=== PATIENT | female | born 2000 | race Caucasian/White ===

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

== ENCOUNTER → 2020-03-01 | Outpatient (CLI) | payer OTHER ==
[~2020-03-01] MED LIST: PROZ20CA11 PO
[2020-03-01 16:47] LABS: C REACTIVE PROTEIN QUANTITATIV < 0.30 MG/DL (0.00-0.30); RHEUMATOID FACTOR QUANT < 10.0 IU/ML (<15.0)
[2020-03-06 14:21] LABS: ANTINUCLEAR ANTIBODIES DIRECT Negative (Negative); HLA-B27 Positive (.); Lyme Disease IgG/IgM Antibodie <0.91 ISR (0.00-0.90); Lyme Disease IgM Ab Quantitati <0.80 index (0.00-0.79)
== END ==
LOC: M LAB 15:35
PROVIDERS: ATTEND Physician Assistant
DX: M50.30 Other cervical disc degeneration, unspecified cervical region (principal)

== ENCOUNTER 2020-12-04 16:05 | Emergency (ER) | payer OTHER ==
[2020-12-04] MEDS ORDERED: NS 1,000 ML IV ONE (16:30)
[2020-12-04 16:54] VITALS: BP 111/73
--- OUTSIDE RECORDS SUMMARY | 2020-12-04 17:57 | CCD | Summary of Care ---
Author Author [facility] Organization [facility] Address Unknown Phone Unavailable Care Team Providers Care Paint Dipper Name Role Phone Elisabeth Boss BUSINESS MANAGEMENT CONSULTANT PCP Encounter Details Care Team Description Date Type Department HLA B27 (HLA B27 positive); Inflammatory arthritis 09/26/2020 Hospital Diagnostic Radiolog y at Encounter [facility] [address] [facility] [address] [place] [address] Allergies Not on Filedocumented as of this encounter (statuses as of 09/27/2020) Medications End Date Status Medication Sig Dispensed Refills Start Date Active Escitalopram Oxalate 10 Take 10 mg by 0 MG Oral Tablet (LEXAPRO) mouth daily Active Drospirenone-Ethinyl Take 1 tablet 0 Estradiol 3-0.02 MG Oral by mouth Tablet (GIANVI) daily documented as of this encounter (statuses as of 09/27/2020) Active Problems Problem Noted Date Anxiety 09/26/2020 Depression 09/26/2020 documented as of this encounter (statuses as of 09/27/2020) Social History Date Tobacco Use Types Packs/Day Years Used Never Smoker Smokeless Tobacco: Never Used Comments: smoked for 1 year 2 cigs a day Drinks/Week oz/Week Comments Alcohol Use Not Currently Sex Assigned at Date Recorded Not on file Date Recorded COVID-19 Exposure Response 09/26/2020 12:29 PM EST In the last month, have you been in contact with No / Unsure someone who was confirmed or suspected to have Coronavirus / COVID-19? documented as of this encounter Last Filed Vital Signs Not on filedocumented in this encounter Plan of Treatment Health Maintenance Due Date Last Done Comments MMR Vaccines (1 of - 2001 Standard series) Varicella Vaccines (2001 2 - 2-dose childhood series) HPV Vaccines (1 - 2-dose 2011 series) HIV Screening 2013 Chlamydia Screening 2016 DTaP,Tdap,and Td Vaccines 06/07/2019 05/10/2019 (2 - Td) Influenza Vaccine 07/19/2020 07/06/2019 Pneumococcal Vaccine: 65+ 2065 Years (1 of 1 - PPSV23) HIB Vaccines Aged Out No longer eligible based on patient's age to complete this topic Hepatitis A Vaccines Aged Out No longer eligibl e based on patient's age to complete this topic Hepatitis B Vaccines Aged Out No longer eligibl e based on patient's age to complete this topic IPV Vaccines Aged Out No longer eligible based on patient's age to complete this topic Pneumococcal Vaccine: Aged Out No longer eligib le based on patient's age to Pediatrics (0 to 5 Years) complete this topic and At-Risk Patients (6 to 64 Years) documented as of this encounter Procedures Comments Procedure Name Priority Date/Time Associated Diag nosis XR SACROILIAC JOINTS Routine 09/26/2020 HLA B27 ( HLA B27 47513 2:38 PM EST positive) Inflammatory arthritis documented in this encounter Results * XR Sacroiliac Joints (09/26/2020 2:38 PM EST) Specimen Impressions Performed At IMPRESSION: [facility] No acute bony injury is identified. The re is no evidence of an erosive arthropathy of either sacroiliac joint. Likely small subchondral degenerative cyst involving the right sacroiliac aleshia nt as discussed above. Narrative Performed At INDICATION: Positive HLA-B27, concern for . [facility] TECHNIQUE: 3 radiographic views of the SI joints bilaterally were obtained. COMPARISON: None. FINDINGS: There is no evidence for an acute fract ure or dislocation . The joint spaces are well maintained and there is anatom ic alignment . No cortical erosion or subchondral sclerosis is seen within ei ther sacroiliac joint. There is a small focal lucency with regard to the subcho ndral iliac bone of the right sacroiliac joint. The this has the appearance of a small subchondral cyst as opposed to an erosion. The soft tissue structures are unremarkable. Procedure Note Interface, Received Via Radiant System - 09/26/2020 3:48 PM EST INDICATION: Positive HLA-B27, concern for . TECHNIQUE: 3 radiographic views of the SI joints bilaterally were obtained. COMPARISON: None. FINDINGS: There is no evidence for an acute fracture or dislocation . The joint spaces are well maintained and there is anatomic alignment . No cortical erosion or subchondral sclerosis is seen within either sacroiliac joint. There is a small focal lucency with regard to the subchondral iliac bone of the right sacroiliac joint. The this has the appearance of a small subchondral cyst as opposed to an erosion. The soft tissue structures are unremarkable. IMPRESSION: No acute bony injury is identified. There is no evidence of an erosive arthropathy of either sacroiliac joint. Likely small subchondral degenerative cyst involving the right sacroiliac joint as discussed above. Performing Organization Address City/State/Zipcode Ph one Number [facility] [address] [place] [address] documented in this encounter Visit Diagnoses Diagnosis HLA B27 (HLA B27 positive) Genetic susceptibility to other disease Inflammatory arthritis Unspecified inflammatory polyarthropath y documented in this encounter
--- OUTSIDE RECORDS SUMMARY | 2020-12-04 17:57 | CCD ---
Author Organization Unknown Address [address] [place] [address] Phone [phone] Care Team Providers Care Dietary Aide Name Role Phone [facility] Covid Nurse Unavailable Unavailable Allergies None recorded. Medications Name Status Start Date Stop Date duloxetine 30 mg capsule,delayed release Active Not available escitalopram 10 mg tablet Active Not av ailable escitalopram 20 mg tablet Active Not av ailable fluoxetine 20 mg capsule Active Not eric ilable misoprostol 200 mcg tablet Active Not a vailable naproxen 500 mg tablet Active Not avail able sertraline 50 mg tablet Active Not avai lable BEA (28) 3 mg-0.02 mg tablet Active Not available Problems Name Status Onset Date Source Exposure to Communicable Disease Active 07/10/2020 History Procedures None recorded. Results Lab Results Date Name Specimen Result Interpretation Description Value Range Status Address 11/20/2020 SARS CoV 2 RdRp Gene, QL Probe, Respiratory Spec imen Nasopharyngeal Normal Sars-cov-2 negative negative Final [facility] Medical: [address] [facility] [address] 11/12/2020 SARS CoV 2 RdRp Gene, QL Probe, Respiratory Spec imen Nasopharyngeal Normal Sars-cov-2 negative negative Final [facility] Medical: [address] [facility] 08/08/2020 COVID-19 RNA (SARS-CoV-2), QL, manager report-PCR, Respiratory Specimen Nasopharyngeal Sars Cov 2 RNA not detected not detected Fi nal Associated Clinical Labs ([facility]): [address] [place] Past Encounters 11/20/2020 Exposure to SARS-CoV-2 Chrissie Goldstien PA-C: [address] [facility], [facility] [address], [place] [address], Ph. 11/12/2020 Exposure to SARS-CoV-2 Beto Stearns MD: [address] [place] [address], Ph. 08/08/2020 Exposure to SARS-CoV-2 Arthur Pugh, RPA-C: [address] [facility], [facility] [address], [place] [address], Ph. Social History None recorded. Vaccine List None recorded. Plan of Care Reminders Provider Appointments None recorded. Lab None recorded. Referral None recorded. Procedures None recorded. Surgeries None recorded. Imaging None recorded. Vitals None recorded.
--- OUTSIDE RECORDS SUMMARY | 2020-12-04 17:57 | CCD | Summary of Care ---
Author Author [facility] Organization [facility] Address Unknown Phone Unavailable Care Team Providers Care Teacher Industrial Arts Name Role Phone Elisabeth Boss SWING TYPE LATHE OPERATOR PCP Reason for Referral * Consultation (Routine) Referred By Contact Referred To Contact Status Reason Specialty Diagnoses / Procedures Chelsy Musa MD [address] [place] [phone] Email: [email or web address] Authorized Specialty Services Ophthalmology Diagnoses Required HLA B27 (HLA B27 positive) Inflammatory arthritis * Consultation (Routine) Referred By Contact Referred To Contact Status Reason Specialty Diagnoses / Procedures Chelsy Musa MD [address] [place] [phone] Email: [email or web address] Authorized Specialty Services Gastroenterology Diagnoses Required HLA B27 (HLA B27 positive) Inflammatory arthritis Reason for Visit * Reason Comments New Patient * Diagnostic Medical (Routine) Referred By Contact Referred To Contact Status Reason Specialty Diagnoses / [place] [address] [place] [address] Rheumatology Provider-Based [facility] [address], [address] [place] [phone] Authorized Rheumatology Diagnoses Ankylosing spondylitis Encounter Details Care Team Description Date Type Department Chelsy Musa MD [address] [place] [phone] HLA B27 (HLA B27 positive) (Primary Dx); Inflammatory arthritis; Neck pain 09/26/2020 Office Visit [facility] Rheumatolog y at [address], [address] [place] [address] Allergies Not on Filedocumented as of this encounter (statuses as of 09/26/2020) Medications End Date Status Medication Sig Dispensed Refills Start Date Active Escitalopram Oxalate 10 Take 10 mg by 0 MG Oral Tablet (LEXAPRO) mouth daily Active Drospirenone-Ethinyl Take 1 tablet 0 Estradiol 3-0.02 MG Oral by mouth Tablet (GIANVI) daily 09/26/2020 Discontinued DULoxetine HCl 30 MG Oral 0 Capsule Delayed Release 0 Particles (CYMBALTA) 09/26/2020 Discontinued BEA 3-0.02 MG Oral Tablet 0 0 documented as of this encounter (statuses as of 09/26/2020) Active Problems Problem Noted Date Anxiety 09/26/2020 Depression 09/26/2020 documented as of this encounter (statuses as of 09/26/2020) Social History Date Tobacco Use Types Packs/Day [...] of this encounter Last Filed Vital Signs Reading Time Taken Comments Vital Sign 124/84 09/26/2020 1:06 PM EST Blood Pressure 126 09/26/2020 1:06 PM EST normal per patie nt Pulse - - Temperature 16 09/26/2020 1:06 PM EST Respiratory Rate 99% 09/26/2020 1:06 PM EST Oxygen Saturation - - Inhaled Oxygen Concentration 52.2 kg (115 lb) 09/26/2020 1:06 PM EST Weight 154.9 cm (5' 1") 09/26/2020 1:06 PM EST Height 21.73 09/26/2020 1:06 PM EST Body Mass Index documented in this encounter Progress Notes * Chelsy Musa MD - 09/26/2020 1:00 PM ESTSummary: New patient for back pain and +HLAb27 Rheumatology Clinic Note Patient name: Shira Velazquez : 2000 PCP: Elisabeth Boss NP Subjective History of Present Illness: Ms. Shira Velazquez is a 20-year-old female with PMHx significant for anxiety/ depression on lexapro eferral for possible evaluation with chronic neck pain and +HLA-B27. Neck injury in 10/19/2011 from sliding accident, she saw a chiropractor. Patient s ays she has had chronic neck pain since age 12, she used to play volleyball and looking up would aggravate it. Her pain continued to worsen and at 16yo she stop ped playing volleyball. She started having lower back pain above the butt at 14 yo. She has issues falling asleep because of pain and trying to adjust. She does not have morning stiffness that she notices. Her back pain starts mid-day and t hen continues. Activity does not help. IBU helps with her pain, ice and stretchi ng helps and Biofreeze helps. She follows up with opthalmology and has never bee n she has inflammatory eye disease. She also has occasional knee pain. She has bowel issues described episodes between diarrhea and constipation with bloating without bloody stools or weight loss. She has no fever, chills, sob, chest pain. Mother with fibromyalgia and dad with crohn's disease. FH remarkable for RA in paternal side, her maternal GM with RA also, her father with CD and brother with dori. She also describes episodes of rib pain described as inflammed and tightness, this occurs once a week and lasts 1 week. 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 She has no enthesisits, skin p soriasis and Remaining ROS was negative for malar rash, other rashes, photosensitivity, rayn auds, alopecia, oral/nasal sores, history of miscarriage, history of PE/DVT or C VA, inflammatory bowel disease, neurologic manifestations, iritis, xerostomia, k eratoconjunctivitis sicca, parotid gland swelling, renal disease, pulmonary issu es, pleurisy, cardiac issues, nail pitting/oil stained nails or dactylitis. Previous EMG studies 03/2020 reported negative for radiculoapathy or peripheral n europathy, she had MRI of cervical neck that reported DJD at c2-3, c4-5, c5-6 wi thout stenosis. She has PT, osteopathic and chiropractor without relief. RF, CR P wnl, +HLA-B27 Past Medical History: Past Medical History: Diagnosis Date Anxiety Depression Allergies: NKDA Past Surgical History: Past Surgical History: Procedure Laterality Date WISDOM TOOTH EXTRACTION Bilateral Past Social History: Social History Socioeconomic History Marital status: Spouse name: Not on file Number of children: Not on file Years of education: Not on file Highest education level: Not on file Occupational History Not on file Social Needs Financial resource strain: Not on file Food insecurity Worry: Not on file Inability: Not on file Transportation needs Medical: Not on file Non-medical: Not on file Tobacco Use Smoking status: Current Every Day Smoker Substance and Sexual Activity Alcohol use: Not on file Drug use: Not on file Sexual activity: Not on file Lifestyle Physical activity Days per week: Not on file Minutes per session: Not on file Stress: Not on file Relationships Social connections Talks on phone: Not on file Gets together: Not on file Attends anglican service: Not on file Active member of club or organization: Not on file Attends meetings of clubs or organizations: Not on file Relationship status: Not on file Intimate partner violence Fear of current or ex partner: Not on file Emotionally abused: Not on file Physically abused: Not on file Forced sexual activity: Not on file Other Topics Concern Not on file Social History Narrative Not on file Family History: Family History Problem Relation Age of Onset Arthritis Mother Medications: Current Outpatient Medications Medication Sig Dispense Refill Drospirenone-Ethinyl Estradiol 3-0.02 MG Oral Tablet (GIANVI) Take 1 tabl et by mouth daily Escitalopram Oxalate 10 MG Oral Tablet (LEXAPRO) Take 10 mg by mouth christiano y No current facility-administered medications for this visit. Review of Systems: Constitutional: chills, malaise/fatigue, fever, unexpected weight loss HENT: sore throat, dry mouth, swollen glands Eyes: blurred vision, double vision, pain and discharge, dry eyes Respiratory: cough, hemoptysis, sputum production and shortness of breath. Cardiovascular: lower extremity swelling, chest pain and palpitations. Gastrointestinal: heartburn, dysphagia, nausea, vomiting, abdominal pain, consti pation, diarrhea. Genitourinary: dysuria, hematuria and flank pain. Musculoskeletal: joint pain, joint stiffness, joint swelling, erythema, increas ed warmth, neck pain, myalgias and falls. Skin: rash, photosensitivity, thickening/tightening Neurological: dizziness, sensory change, speech change, focal weakness, loss of consciousness, tingling/numbness and weakness. Endo/Heme/Allergies: easy bruising/bleeding All pertinent positives and negatives as per HPI. Remainder of complete ROS nega tive. Objective Vitals: 09/26/20 1306 BP: 124/84 Pulse: (!) 126 Resp: 16 SpO2: 99% Physical Exam Constitutional: She is oriented to person, place, and time. No distress. HENT: Head: Normocephalic and atraumatic. Right Ear: External ear normal. Left Ear: External ear normal. Mouth/Throat: No oropharyngeal exudate. Eyes: Conjunctivae are normal. Right eye exhibits no discharge. Left eye exhibit s no discharge. No scleral icterus. Neck: Neck supple. No JVD present. No thyromegaly present. Cardiovascular: Normal rate, regular rhythm and normal heart sounds. No murmur heard. Pulmonary/Chest: Effort normal and breath sounds normal. No respiratory distress . She has no wheezes. She has no rales. Abdominal: Soft. Bowel sounds are normal. She exhibits no distension. There is n o abdominal tenderness. Musculoskeletal: General: No tenderness or edema. Right shoulder: Normal. Left shoulder: Normal. Right wrist: Normal. Right hip: Normal. She exhibits normal range of motion. Left hip: Normal. She exhibits normal range of motion. Right knee: Normal. Left knee: Normal. Right ankle: Normal. Left ankle: Normal. Comments: CANDELARIA test done and had pain on left side occiput to wall test, distance measured to be zero Lymphadenopathy: She has no cervical adenopathy. Neurological: She is alert and oriented to person, place, and time. Skin: Skin is warm. No rash noted. She is not diaphoretic. No erythema. Psychiatric: Affect and judgment normal. Nursing note and vitals reviewed. Assessment & Plan Ms. Shira Velazquez is a 20-year-old female with PMHx significant for anxiety/ depression on lexapro eferral for possible evaluation with chronic neck pain and +HLA-B27. Today patient c/o chronic neck pain that started when sh was 12, then her pain p rogressed to her lower back at the age of 14. Her FH is remarkable for RA for s everal members in fathers side, CD in her father and RA in MGM. She also has +H LB-27 marker but she has no skin psoriasis, enthesitis, iritis, or nail changes. Also her pain is not typical for in that she does not have am stiffness, but rather has pain mid day, and pain is worst with too much activity. IBU does he lp. Given her bowel complaints and FH of CD in father I will refer her to GI. She has not seen opthalmology in 2 years and I advised her to see one, both refe rrals made to [place] at her request. Given her complaints I wonder if she has FREDDY. Shira was seen today for new patient. Diagnoses and all orders for this visit: HLA B27 (HLA B27 positive), back pain - HLA-B27 antigen; Future - Sedimentation rate, automated; Future - Rheumatoid factor; Future - EVELYN; Future - EVELYN Specificity; Future - C3 complement; Future - C4 complement; Future - XR Hand 3 or More Views Bilateral; Future - CCP antiBody; Future - Inflammatory C-Reactive Protein (CRP); Future - XR Spine Cervical 3 Views or Less; Future - XR Hips - Bilateral, 2 Views; Future - XR Sacroiliac Joints; Future - Referral to Gastroenterology - Referral to Ophthalmology - Inflammatory C-Reactive Protein (CRP) - CCP antiBody - C4 complement - C3 complement - EVELYN Specificity - EVELYN - Rheumatoid factor - Sedimentation rate, automated - HLA-B27 antigen Activities as tolerated. Fall precautions emphasized. Diet: low carb/low fat, more greens/vegetables, adequate hydration Encouraged to maintain good sleep hygiene Continue other medications as prescribed by PCP and other specialists. DVT precautions especially during long distance travel RTC: 3 mos Chelsy Quinteros MD Rheumatology Attending [facility] documented in this encounter Plan of Treatment Care Team Description Date Type Specialty 09/26/2020 Appointment Radiology 09/26/2020 Appointment Radiology 09/26/2020 Appointment Radiology 09/26/2020 Appointment Radiology Order Schedule Name Type Priority Associated Diag noses 1 Occurrences starting 09/26/2020 until 03/27/2021 HLA-B27 antigen Lab Routine HLA B27 (HLA B 27 positive) Inflammatory arthritis 1 Occurrences starting 09/26/2020 until 03/27/2021 Sedimentation rate, Lab Routine HLA B27 (H LA B27 automated positive) Inflammatory arthritis 1 Occurrences starting 09/26/2020 until 03/27/2021 Rheumatoid factor Lab Routine HLA B27 (HLA B27 positive) Inflammatory arthritis 1 Occurrences starting 09/26/2020 until 03/27/2021 EVELYN Lab Routine HLA B27 (HLA B2 7 positive) Inflammatory arthritis 1 Occurrences starting 09/26/2020 until 03/27/2021 EVELYN Specificity Lab Routine HLA B27 (HLA B 27 positive) Inflammatory arthritis 1 Occurrences starting 09/26/2020 until 03/27/2021 C3 complement Lab Routine HLA B27 (HLA B2 7 positive) Inflammatory arthritis 1 Occurrences starting 09/26/2020 until 03/27/2021 C4 complement Lab Routine HLA B27 (HLA B2 7 positive) Inflammatory arthritis Expected: 09/26/2020, Expires: 2 XR Hand 3 or More Views Imaging Routine HLA B2 7 (HLA B27 Bilateral positive) Inflammatory arthritis 1 Occurrences starting 09/26/2020 until 03/27/2021 CCP antiBody Lab Routine HLA B27 (HLA B2 7 positive) Inflammatory arthritis 1 Occurrences starting 09/26/2020 until 03/27/2021 Inflammatory C-Reactive Lab Routine HLA B2 7 (HLA B27 Protein (CRP) positive) Inflammatory arthritis Expected: 09/26/2020, Expires: 2 XR Spine Cervical 3 Views Imaging Routine HLA B27 (HLA B27 or Less positive) Inflammatory arthritis Expected: 09/26/2020, Expires: 2 XR Hips - Bilateral, 2 Imaging Routine HLA B27 (HLA B27 Views positive) Inflammatory arthritis Expected: 09/26/2020, Expires: 2 XR Sacroiliac Joints Imaging Routine HLA B27 ( HLA B27 positive) Inflammatory arthritis Order Schedule Name Type Priority Associated Diag noses Ordered: 09/26/2020 Referral to Outpatient Routine HLA B27 (HLA B2 7 Gastroenterology Referral positive) Inflammatory arthritis Ordered: 09/26/2020 Referral to Ophthalmology Outpatient Routine HLA B27 (HLA B27 Referral positive) Inflammatory arthritis Health Maintenance Due Date Last Done Comments MMR Vaccines (1 of - 2001 Standard series) Varicella Vaccines (1 of 2001 2 - 2-dose childhood series) DTaP,Tdap,and Td Vaccines 2007 (1 - Tdap) HPV Vaccines (1 - 2-dose 2011 series) HIV Screening 2013 Chlamydia Screening 2016 Influenza Vaccine 07/19/2020 Pneumococcal Vaccine: 65+ 2065 Years (1 of [...] 64 Years) documented as of this encounter Results Not on filedocumented in this encounter Visit Diagnoses Diagnosis HLA B27 (HLA B27 positive) - Primary Genetic susceptibility to other disease Inflammatory arthritis Unspecified inflammatory polyarthropath y Neck pain Cervicalgia documented in this encounter
--- OUTSIDE RECORDS SUMMARY | 2020-12-04 17:57 | CCD | Summary of Care ---
Author Author [facility] Organization [facility] Address Unknown Phone Unavailable Care Team Providers Care Regional Sales Associate Name Role Phone Elisabeth Boss RAMP SERVICE MAN PCP Encounter Details Care Team Description Date Type Department HLA B27 (HLA B27 positive); Inflammatory arthritis 09/26/2020 Hospital Diagnostic Radiolog y at Encounter [facility] [place] [address] Allergies Not on Filedocumented as [...] Name Priority Date/Time Associated Diag nosis XR SPINE CERV 2-3 VIEWS Routine 09/26/2020 HLA B2 7 (HLA B27 73418 2:39 PM EST positive) Inflammatory arthritis documented in this encounter Results * XR Spine Cervical 3 Views or Less (09/26/2020 2:39 PM EST) Specimen Impressions Performed At FINDINGS/IMPRESSION: There are no significant arthrit ic changes shown. Mild [facility] focal reversal of the normal cervical l ordosis from C4 to C6 with apex at C5 is present. There is no spondylolisthesis. No acute fractures are shown. Vertebral body and disc heights are normal. The b one density appears normal. There are no osteolytic or osteoblastic lesions show n. No prevertebral soft tissue swelling is present. Narrative Performed At EXAMINATION: XR SPINE CERV 2-3 VIEWS 48882 [facility] LOG[facility] CLINICAL INDICATION: Neck pain. TECHNIQUE: Upright AP, lateral, open-mo uth odontoid, and Fuchs images of the cervical spine were submitted for inter pretation. A total of 4 images were available at the time of dictation. COMPARISON: None at the time of this di ctation. Procedure Note Interface, Received Via SpineVision System - 09/26/2020 2:56 PM EST EXAMINATION: XR SPINE CERV 2-3 VIEWS 83124 CLINICAL INDICATION: Neck pain. TECHNIQUE: Upright AP, lateral, open-mouth odontoid, and Fuchs images of the cervical spine were submitted for interpretation. A total of 4 images were available at the time of dictation. COMPARISON: None at the time of this dictation. FINDINGS/IMPRESSION: There are no significant arthritic changes shown. Mild focal reversal of the normal cervical lordosis from C4 to C6 with apex at C5 is present. There is no spondylolisthesis. No acute fractures are shown. Vertebral body and disc heights are normal. The bone density appears normal. There are no osteolytic or osteoblastic lesions shown. No prevertebral soft tissue swelling is present. Performing Organization Address City/State/Zipcode Ph one Number [facility] [address] [place] [address] documented in this encounter Visit Diagnoses Diagnosis HLA B27 (HLA B27 positive) Genetic susceptibility to other disease Inflammatory arthritis Unspecified inflammatory polyarthropath y documented in this encounter
--- OUTSIDE RECORDS SUMMARY | 2020-12-04 17:57 | CCD ---
Author Organization Unknown Address [address] [place] [address] Phone [phone] Care Team Providers Care Automatic Packer Operator Name Role Phone [facility] Covid Nurse Unavailable Unavailable Allergies None recorded. [...] mg-0.02 mg tablet Active Not available Problems None recorded. Procedures None recorded. Results Lab Results Date Name Specimen Result Interpretation Description Value Range Status Address 08/08/2020 COVID-19 RNA (SARS-CoV-2), QL, change management administrator-PCR, Respiratory Specimen Nasopharyngeal Sars Cov 2 RNA not detected not detected Fi nal Associated Clinical [facility] ([facility]): [address] Past Encounters 11/12/2020 Exposure to SARS-CoV-2 Beto Stearns MD: [address] [place] [address], Ph. 08/08/2020 Exposure to SARS-CoV-2 Arthur Pugh, SHAKEEL-C: [address] [facility] [address] [address], Ph. Social History None recorded. Vaccine List None recorded. Plan of Care Reminders Provider Appointments None recorded. Lab None recorded. Referral None recorded. Procedures None recorded. Surgeries None recorded. Imaging None recorded. Vitals None recorded.
--- OUTSIDE RECORDS SUMMARY | 2020-12-04 17:57 | CCD | Summary of Care ---
Author Author [facility] Organization [facility] Address Unknown Phone Unavailable Care Team Providers Care Handy Man Name Role Phone Elisabeth Boss SPORTS RECRUITER PCP Encounter Details Care Team Description Date Type Department HLA B27 (HLA B27 positive); Inflammatory arthritis 09/26/2020 Hospital Diagnostic Radiolog y at Encounter [facility] [address] [place] [address] Allergies Not on Filedocumented as [...] Name Priority Date/Time Associated Diag nosis XR HIPS- BILAT, 2 VIEWS Routine 09/26/2020 HLA B2 7 (HLA B27 79999 2:37 PM EST positive) Inflammatory arthritis documented in this encounter Results * XR Hips - Bilateral, 2 Views (09/26/2020 2:37 PM EST) Specimen Impressions Performed At IMPRESSION: [facility] No acute bony injury is identified. No evidence for an acute inflammatory arthropathy is identified. Narrative Performed At INDICATION: Hip pain. [facility] TECHNIQUE: An AP and frog-leg lateral r adiographic view of the right hip was obtained. An AP and frog-leg lateral ra diographic view of the left hip was obtained. COMPARISON: None. FINDINGS: There is no evidence for an acute fract ure or dislocation . The joint spaces are well maintained and there is anatom ic alignment . No cortical erosion is seen represent an inflammatory arthropa thy is identified. The soft tissue structures are unremarkable. Procedure Note Interface, Received Via StudyRoom System - 09/26/2020 3:50 PM EST INDICATION: Hip pain. TECHNIQUE: An AP and frog-leg lateral radiographic view of the right hip was obtained. An AP and frog-leg lateral radiographic view of the left hip was obtained. COMPARISON: None. FINDINGS: There is no evidence for an acute fracture or dislocation . The joint spaces are well maintained and there is anatomic alignment . No cortical erosion is seen represent an inflammatory arthropathy is identified. The soft tissue structures are unremarkable. IMPRESSION: No acute bony injury is identified. No evidence for an acute inflammatory arthropathy is identified. 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
--- OUTSIDE RECORDS SUMMARY | 2020-12-04 17:57 | CCD | Summary of Care ---
Author Author [facility] Organization [facility] Address Unknown Phone Unavailable Care Team Providers Care Civil Engineering Drafter Name Role Phone Elisabeth Boss BLENDING PLANT OPERATOR PCP Encounter Details Care Team Description Date Type Department HLA B27 (HLA B27 positive); Inflammatory arthritis 09/26/2020 [facility] Rad[facility]olog y at [facility] [address] [place] [address] Allergies Not on Filedocumented as [...] Name Priority Date/Time Associated Diag nosis XR HAND 3 OR MORE VIEWS Routine 09/26/2020 HLA B2 7 (HLA B27 [id number] 2:37 PM EST positive) Inflammatory arthritis documented in this encounter Results * XR Hand 3 or More Views Bilateral (09/26/2020 2:37 PM EST) Specimen Impressions Performed At IMPRESSION: [facility] No acute bony injury is identified with in either hand. There is no radiographic evidence for an inflammatory arthropath y within either hand. Narrative Performed At INDICATION: Assess for any signs of inflammatory arth ritis. [facility] TECHNIQUE: 4 radiographic views of the right hand were obtained. 4 radiographic views of left hand were obtained. COMPARISON: None. FINDINGS: There is no evidence for an acute fract ure or dislocation . No bony erosions are seen to represent inflammatory arth ropathy. The joint spaces are well maintained and there is anatomic alignm ent . The soft tissue structures are unremarkable. Procedure Note Interface, Received Via [employer] System - 09/26/2020 3:51 PM EST INDICATION: Assess for any signs of inflammatory arthritis. TECHNIQUE: 4 radiographic views of the right hand were obtained. 4 radiographic views of left hand were obtained. COMPARISON: None. FINDINGS: There is no evidence for an acute fracture or dislocation . No bony erosions are seen to represent inflammatory arthropathy. The joint spaces are well maintained and there is anatomic alignment . The soft tissue structures are unremarkable. IMPRESSION: No acute bony injury is identified within either hand. There is no radiographic evidence for an inflammatory arthropathy within either hand. 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
--- OUTSIDE RECORDS SUMMARY | 2020-12-04 17:58 | CCD ---
Author Author [facility] Organization [facility] Address Unknown Phone Unavailable Care Team Providers Care Acid Pump Operator Name Role Phone PUGH, PILLO ARTHUR RPA-C Unavailable Unavailable PUGH, PILLO ARTHUR RPA-C Unavailable Unavailable [facility], PILLO ARTHUR RPA-C Unavailable Unavailable PUGH, PILLO ARTHUR RPA-C Unavailable Unavailable PUGH, PILLO ARTHUR RPA-C Unavailable Unavailable PUGH, PILLO ARTHUR RPA-C Unavailable Unavailable PUGH, PILLO ARTHUR RPA-C Unavailable Unavailable PUGH, PILLO ARTHUR RPA-C Unavailable Unavailable PUGH, PILLO ARTHUR RPA-C Unavailable Unavailable PUGH, PILLO ARTHUR RPA-C Unavailable Unavailable PUGH, PILLO ARTHUR RPA-C Unavailable Unavailable PUGH, PILLO ARTHUR RPA-C Unavailable Unavailable PUGH, PILLO ARTHUR RPA-C Unavailable Unavailable PUGH, PILLO ARTHUR RPA-C Unavailable Unavailable PUGH, PILLO ARTHUR RPA-C Unavailable Unavailable PUGH, PILLO ARTHUR RPA-C Unavailable Unavailable PUGH, PILLO ARTHUR RPA-C Unavailable Unavailable PUGH, PILLO ARTHUR RPA-C Unavailable Unavailable PUGH, PILLO ARTHUR RPA-C Unavailable Unavailable PUGH, PILLO ARTHUR RPA-C Unavailable Unavailable PUGH, PILLO ARTHUR RPA-C Unavailable Unavailable PUGH, PILLO ARTHUR RPA-C Unavailable Unavailable PUGH, PILLO ARTHUR RPA-C Unavailable Unavailable PUGH, PILLO ARTHUR RPA-C Unavailable Unavailable PUGH, PILLO ARTHUR RPA-C Unavailable Unavailable PUGH, PILLO ARTHUR RPA-C Unavailable Unavailable PUGH, PILLO ARTHUR RPA-C Unavailable Unavailable PUGH, PILLO ARTHUR RPA-C Unavailable Unavailable PUGH, PILLO ARTHUR RPA-C Unavailable Unavailable PUGH, PILLO ARTHUR RPA-C Unavailable Unavailable PUGH, PILLO ARTHUR RPA-C Unavailable Unavailable PUGH, PILLO ARTHUR RPA-C Unavailable Unavailable PUGH, PILLO ARTHUR RPA-C Unavailable Unavailable PUGH, PILLO ARTHUR RPA-C Unavailable Unavailable PUGH, PILLO ARTHUR RPA-C Unavailable Unavailable PUGH, PILLO ARTHUR RPA-C Unavailable Unavailable PUGH, PILLO ARTHUR RPA-C Unavailable Unavailable PUGH, PILLO ARTHUR RPA-C Unavailable Unavailable PUGH, PILLO ARTHUR RPA-C Unavailable Unavailable Hernandez, L Elisabeth FIBERGLASS FABRICATOR Unavailable Unavailable Hernandez, L Elisabeth FIBERGLASS FABRICATOR Unavailable Unavailable Hernandez, L Elisabeth FIBERGLASS FABRICATOR Unavailable Unavailable Hernandez, L Elisabeth FIBERGLASS FABRICATOR Unavailable Unavailable Hernandez, L Elisabeth FIBERGLASS FABRICATOR Unavailable Unavailable Hernandez, L Elisabeth FIBERGLASS FABRICATOR Unavailable Unavailable Hernandez, L Elisabeth FIBERGLASS FABRICATOR Unavailable Unavailable Hernandez, L Elisabeth FIBERGLASS FABRICATOR Unavailable Unavailable Hernandez, L Elisabeth FIBERGLASS FABRICATOR Unavailable Unavailable Hernandez, L Elisabeth FIBERGLASS FABRICATOR Unavailable Unavailable Hernandez, L Elisabeth FIBERGLASS FABRICATOR Unavailable Unavailable Hernandez, L Elisabeth FIBERGLASS FABRICATOR Unavailable Unavailable Hernandez, L Elisabeth FIBERGLASS FABRICATOR Unavailable Unavailable Hernandez, L Elisabeth FIBERGLASS FABRICATOR Unavailable Unavailable Hernandez, L Elisabeth FIBERGLASS FABRICATOR Unavailable Unavailable Hernandez, L Elisabeth FIBERGLASS FABRICATOR Unavailable Unavailable Hernandez, L Elisabeth FIBERGLASS FABRICATOR Unavailable Unavailable Hernandez, L Elisabeth FIBERGLASS FABRICATOR Unavailable Unavailable Hernandez, L Elisabeth FIBERGLASS FABRICATOR Unavailable Unavailable Hernandez, L Elisabeth FIBERGLASS FABRICATOR Unavailable Unavailable Hernandez, L Elisabeth FIBERGLASS FABRICATOR Unavailable Unavailable Hernandez, L Elisabeth FIBERGLASS FABRICATOR Unavailable Unavailable Hernandez, L Elisabeth FIBERGLASS FABRICATOR Unavailable Unavailable Hernandez, L Elisabeth FIBERGLASS FABRICATOR Unavailable Unavailable Hernandez, L Elisabeth FIBERGLASS FABRICATOR Unavailable Unavailable Hernandez, L Elisabeth FIBERGLASS FABRICATOR Unavailable Unavailable Hernandez, L Elisabeth FIBERGLASS FABRICATOR Unavailable Unavailable Hernandez, L Elisabeth FIBERGLASS FABRICATOR Unavailable Unavailable Hernandez, L Elisabeth FIBERGLASS FABRICATOR Unavailable Unavailable Hernandez, L Elisabeth FIBERGLASS FABRICATOR Unavailable Unavailable Hernandez, L Elisabeth FIBERGLASS FABRICATOR Unavailable Unavailable Hernandez, L Elisabeth FIBERGLASS FABRICATOR Unavailable Unavailable Hernandez, L Elisabeth FIBERGLASS FABRICATOR Unavailable Unavailable Hernandez, L Elisabeth FIBERGLASS FABRICATOR Unavailable Unavailable Hernandez, L Elisabeth FIBERGLASS FABRICATOR Unavailable Unavailable Hernandez, L Elisabeth FIBERGLASS FABRICATOR Unavailable Unavailable Hernandez, L Elisabeth FIBERGLASS FABRICATOR Unavailable Unavailable Hernandez, L Elisabeth FIBERGLASS FABRICATOR Unavailable Unavailable Hernandez, L Elisabeth FIBERGLASS FABRICATOR Unavailable Unavailable Hernandez, L Elisabeth FIBERGLASS FABRICATOR Unavailable Unavailable Danielle Stearns MD Unavailable Unavailable Danielle Stearns MD Unavailable Unavailable Danielle Stearns MD Unavailable Unavailable Danielle Stearns MD Unavailable Unavailable Danielle Stearns MD Unavailable Unavailable Danielle Stearns MD Unavailable Unavailable Danielle Stearns MD Unavailable Unavailable Danielle Stearns MD Unavailable Unavailable Danielle Stearns MD Unavailable Unavailable Danielle Stearns MD Unavailable Unavailable Danielle Stearns MD Unavailable Unavailable Danielel Stearns MD Unavailable Unavailable Danielle Stearns MD Unavailable Unavailable Danielle Stearns MD Unavailable Unavailable Danielle Stearns MD Unavailable Unavailable Danielle Stearns MD Unavailable Unavailable Danielle Stearns MD Unavailable Unavailable Danielle Stearns MD Unavailable Unavailable Danielle Stearns MD Unavailable Unavailable Danielle Stearns MD Unavailable Unavailable Danielle Stearns MD Unavailable Unavailable Danielle Stearns MD Unavailable Unavailable Danielle Stearns MD Unavailable Unavailable Danielle Stearns MD Unavailable Unavailable Danielle Stearns MD Unavailable Unavailable Danielle Stearns MD Unavailable Unavailable Danielle Stearns MD Unavailable Unavailable Danielle Stearns MD Unavailable Unavailable Danielle Stearns MD Unavailable Unavailable Danielle Stearns MD Unavailable Unavailable Danielle Stearns MD Unavailable Unavailable Danielle Stearns MD Unavailable Unavailable Danielle Stearns MD Unavailable Unavailable Danielle Stearns MD Unavailable Unavailable Danielle Stearns MD Unavailable Unavailable Danielle Stearns MD Unavailable Unavailable Danielle Stearns MD Unavailable Unavailable Danielle Stearns MD Unavailable Unavailable Danielle Stearns MD Unavailable Unavailable Danielle Stearns MD Unavailable Unavailable Danielle Stearns MD Unavailable Unavailable Danielle Stearns MD Unavailable Unavailable Danielle Stearns MD Unavailable Unavailable Danielle Stearns MD Unavailable Unavailable Danielle Stearns MD Unavailable Unavailable Danielle Stearns MD Unavailable Unavailable Danielle Stearns MD Unavailable Unavailable Danielle Stearns MD Unavailable Unavailable Danielle Stearns MD Unavailable Unavailable Danielle Stearns MD Unavailable Unavailable Danielle Stearns MD Unavailable Unavailable Danielle Stearns MD Unavailable Unavailable Danielle Stearns MD Unavailable Unavailable Danielle Stearns MD Unavailable Unavailable aDnielle Stearns MD Unavailable Unavailable Danielle Stearns MD Unavailable Unavailable Danielle Stearsn MD Unavailable Unavailable Danielle Stearns MD Unavailable Unavailable Danielle Stearns MD Unavailable Unavailable Danielle Stearns MD Unavailable Unavailable Danielle Stearns MD Unavailable Unavailable Danielle Stearns MD Unavailable Unavailable Danielle Stearns MD Unavailable Unavailable Danielle Stearns MD Unavailable Unavailable Danielle Stearns MD Unavailable Unavailable Danielle Stearns MD Unavailable Unavailable Danielle Stearns MD Unavailable Unavailable Danielle Stearns MD Unavailable Unavailable Danielle Stearns MD Unavailable Unavailable Danielle Stearns MD Unavailable Unavailable Danielle Stearns MD Unavailable Unavailable Danielle Stearns MD Unavailable Unavailable Danielle Stearns MD Unavailable Unavailable Danielle Stearns MD Unavailable Unavailable Danielle Stearns MD Unavailable Unavailable Danielle Stearns MD Unavailable Unavailable Danielle Stearns MD Unavailable Unavailable Danielle Stearns MD Unavailable Unavailable Danielle Stearns MD Unavailable Unavailable Danielle Stearns MD Unavailable Unavailable Danielle Stearns MD Unavailable Unavailable Danielle Stearns MD Unavailable Unavailable Danielle Stearns MD Unavailable Unavailable Danielle Stearns MD Unavailable Unavailable Danielle Stearns MD Unavailable Unavailable Danielle Stearns MD Unavailable Unavailable Danielle Stearns MD Unavailable Unavailable Danielle Stearns MD Unavailable Unavailable Danielle Stearns MD Unavailable Unavailable MCELHERAN, JERRY PA Unavailable Unavailable MCELHERAN, JERRY PA Unavailable Unavailable MCELHERAN, JERRY PA Unavailable Unavailable MCELHERAN, JERRY PA Unavailable Unavailable MCELHERAN, JERRY PA Unavailable Unavailable MCELHERAN, JERRY PA Unavailable Unavailable MCELHERAN, JERRY PA Unavailable Unavailable MCELHERAN, JERRY PA Unavailable Unavailable MCELHERAN, JERRY PA Unavailable Unavailable MCELHERAN, JERRY PA Unavailable Unavailable MCELHERAN, JERRY PA Unavailable Unavailable MCELHERAN, JERRY PA Unavailable Unavailable MCELHERAN, JERRY PA Unavailable Unavailable MCELHERAN, JERRY PA Unavailable Unavailable MCELHERAN, JERRY PA Unavailable Unavailable MCELHERAN, JERRY PA Unavailable Unavailable MCELHERAN, JERRY PA Unavailable Unavailable MCELHERAN, JERRY PA Unavailable Unavailable MCELHERAN, JERRY PA Unavailable Unavailable MCELHERAN, JERRY PA Unavailable Unavailable MCELHERAN, JERRY PA Unavailable Unavailable MCELHERAN, JERRY PA Unavailable Unavailable MCELHERAN, JERRY PA Unavailable Unavailable MCELHERAN, JERRY PA Unavailable Unavailable MCELHERAN, JERRY PA Unavailable Unavailable MCELHERAN, JERRY PA Unavailable Unavailable MCELHERAN, JERRY PA Unavailable Unavailable MCELHERAN, JERRY PA Unavailable Unavailable Scordo, M Chrissie PA Unavailable Unavailable Scordo, M Chrissie PA Unavailable Unavailable Scordo, M Chrissie PA Unavailable Unavailable Scordo, M Chrissie PA Unavailable Unavailable Scordo, M Chrissie PA Unavailable Unavailable Scordo, M Chrissie PA Unavailable Unavailable Scordo, M Chrissie PA Unavailable Unavailable Scordo, M Chrissie PA Unavailable Unavailable Scordo, M Chrissie PA Unavailable Unavailable Scordo, M Chrissie PA Unavailable Unavailable Scordo, M Chrissie PA Unavailable Unavailable Scordo, M Chrissie PA Unavailable Unavailable Scordo, M Chrissie PA Unavailable Unavailable Scordo, M Chrissie PA Unavailable Unavailable Scordo, M Chrissie PA Unavailable Unavailable Scordo, M Chrissie PA Unavailable Unavailable Scordo, M Chrissie PA Unavailable Unavailable Scordo, M Chrissie PA Unavailable Unavailable Scordo, M Chrissie PA Unavailable Unavailable Scordo, M Chrissie PA Unavailable Unavailable Scordo, M Chrissie PA Unavailable Unavailable Scordo, M Chrissie PA Unavailable Unavailable Scordo, M Chrissie PA Unavailable Unavailable Scordo, M Chrissie PA Unavailable Unavailable Scordo, M Chrissie PA Unavailable Unavailable Scordo, M Chrissie PA Unavailable Unavailable Scordo, M Chrissie PA Unavailable Unavailable Scordo, M Chrissie PA Unavailable Unavailable Scordo, M Chrissie PA Unavailable Unavailable Scordo, M Chrissie PA Unavailable Unavailable Scordo, M Chrissie PA Unavailable Unavailable Scordo, M Chrissie PA Unavailable Unavailable Scordo, M Chrissie PA Unavailable Unavailable Scordo, M Chrissie PA Unavailable Unavailable Scordo, M Chrissie PA Unavailable Unavailable Scordo, M Chrissie PA Unavailable Unavailable Scordo, M Chrissie PA Unavailable Unavailable Scordo, M Chrissie PA Unavailable Unavailable Scordo, M Chrissie PA Unavailable Unavailable Scordo, M Chrissie PA Unavailable Unavailable Scordo, M Chrissie PA Unavailable Unavailable Scordo, M Chrissie PA Unavailable Unavailable Scordo, M Chrissie PA Unavailable Unavailable Elli Musa MD Unavailable Unavailable Elli Musa MD Unavailable Unavailable Elli Musa MD Unavailable Unavailable Elli Musa MD Unavailable Unavailable Elli Musa MD Unavailable Unavailable Elli Musa MD Unavailable Unavailable Elli Musa MD Unavailable Unavailable Elli Musa MD Unavailable Unavailable Elli Musa MD Unavailable Unavailable Elli Musa MD Unavailable Unavailable Elli Musa MD Unavailable Unavailable Elli Musa MD Unavailable Unavailable Elli Musa MD Unavailable Unavailable Danielle Stearns MD Unavailable Unavailable Danielle Stearns MD Unavailable Unavailable Danielle Stearns MD Unavailable Unavailable Danielle Stearns MD Unavailable Unavailable Danielle Stearns MD Unavailable Unavailable Danielle Stearns MD Unavailable Unavailable Danielle Stearns MD Unavailable Unavailable Danielle Stearns MD Unavailable Unavailable Danielle Stearns MD Unavailable Unavailable Danielle Stearns MD Unavailable Unavailable Danielle Stearns MD Unavailable Unavailable Danielle Stearns MD Unavailable Unavailable Danielle Stearns MD Unavailable Unavailable Danielle Stearns MD Unavailable Unavailable Danielle Stearns MD Unavailable Unavailable Danielle Stearns MD Unavailable Unavailable Danielle Stearns MD Unavailable Unavailable Danielle Stearns MD Unavailable Unavailable Danielle Stearns MD Unavailable Unavailable Danielle Stearns MD Unavailable Unavailable Danielle Stearns MD Unavailable Unavailable Danielle Stearns MD Unavailable Unavailable Danielle Stearns MD Unavailable Unavailable Danielle Stearns MD Unavailable Unavailable Danielle Stearns MD Unavailable Unavailable Danielle Stearns MD Unavailable Unavailable Danielle Stearns MD Unavailable Unavailable Danielle Stearns MD Unavailable Unavailable Danielle Stearns MD Unavailable Unavailable Danielle Stearns MD Unavailable Unavailable Danielle Stearns MD Unavailable Unavailable Danielle Stearns MD Unavailable Unavailable Danielle Stearns MD Unavailable Unavailable Danielle Stearns MD Unavailable Unavailable Danielle Stearns MD Unavailable Unavailable Danielle Stearns MD Unavailable Unavailable Danielle Stearns MD Unavailable Unavailable Danielle Stearns MD Unavailable Unavailable Danielle Stearns MD Unavailable Unavailable Danielle Stearns MD Unavailable Unavailable Danielle Stearns MD Unavailable Unavailable Danielle Stearns MD Unavailable Unavailable Daneille Stearns MD Unavailable Unavailable Danielle Stearns MD Unavailable Unavailable Danielle Stearns MD Unavailable Unavailable Danielle Stearns MD Unavailable Unavailable Danielle Stearns MD Unavailable Unavailable Danielle Stearns MD Unavailable Unavailable Danielle Stearns MD Unavailable Unavailable Danielle Staerns MD Unavailable Unavailable Danielle Stearns MD Unavailable Unavailable Danielle Stearns MD Unavailable Unavailable Danielle Stearns MD Unavailable Unavailable Danielle Stearns MD Unavailable Unavailable Danielle Stearns MD Unavailable Unavailable Danielle Stearns MD Unavailable Unavailable Danielle Stearns MD Unavailable Unavailable Danielle Stearns MD Unavailable Unavailable Danielle Stearns MD Unavailable Unavailable Danielle Stearns MD Unavailable Unavailable Danielle Stearns MD Unavailable Unavailable Danielle Stearns MD Unavailable Unavailable Danielle Stearns MD Unavailable Unavailable Danielle Stearns MD Unavailable Unavailable Danielle Stearns MD Unavailable Unavailable Danielle Stearns MD Unavailable Unavailable Danielle Stearns MD Unavailable Unavailable Danielle Stearns MD Unavailable Unavailable Danielle Stearns MD Unavailable Unavailable Danielle Stearns MD Unavailable Unavailable Danielle Stearns MD Unavailable Unavailable Danielle Stearns MD Unavailable Unavailable Danielle Stearns MD Unavailable Unavailable Danielle Stearns MD Unavailable Unavailable Danielle Stearns MD Unavailable Unavailable Danielle Stearns MD Unavailable Unavailable Danielle Stearns MD Unavailable Unavailable Danielle Stearns MD Unavailable Unavailable Danielle Stearns MD Unavailable Unavailable Danielle Stearns MD Unavailable Unavailable Danielle Stearns MD Unavailable Unavailable Danielle Stearns MD Unavailable Unavailable Danielle Stearns MD Unavailable Unavailable Danielle Stearns MD Unavailable Unavailable Danielle Stearns MD Unavailable Unavailable Danielle Stearns MD Unavailable Unavailable Danielle Stearns MD Unavailable Unavailable Danielle Stearns MD Unavailable Unavailable Danielle Stearns MD Unavailable Unavailable KILGORE, ANGELINA Unavailable Unavailable Hernandez, L Elisabeth FIBERGLASS FABRICATOR Unavailable Unavailable Hernandez, L Elisabeth FIBERGLASS FABRICATOR Unavailable Unavailable Hernandez, L Elisabeth FIBERGLASS FABRICATOR Unavailable Unavailable Hernandez, L Elisabeth FIBERGLASS FABRICATOR Unavailable Unavailable Hernandez, L Elisabeth FIBERGLASS FABRICATOR Unavailable Unavailable Hernandez, L Elisabeth FIBERGLASS FABRICATOR Unavailable Unavailable Hernandez, L Elisabeth FIBERGLASS FABRICATOR Unavailable Unavailable Hernandez, L Elisabeth FIBERGLASS FABRICATOR Unavailable Unavailable Hernandez, L Elisabeth FIBERGLASS FABRICATOR Unavailable Unavailable Hernandez, L Elisabeth FIBERGLASS FABRICATOR Unavailable Unavailable Hernandez, L Elisabeth FIBERGLASS FABRICATOR Unavailable Unavailable Hernandez, L Elisabeth FIBERGLASS FABRICATOR Unavailable Unavailable Hernandez, L Elisabeth FIBERGLASS FABRICATOR Unavailable Unavailable Hernandez, L Elisabeth FIBERGLASS FABRICATOR Unavailable Unavailable Hernandez, L Elisabeth FIBERGLASS FABRICATOR Unavailable Unavailable Hernandez, L Elisabeth FIBERGLASS FABRICATOR Unavailable Unavailable Hernandez, L Elisabeth FIBERGLASS FABRICATOR Unavailable Unavailable Hernandez, L Elisabeth FIBERGLASS FABRICATOR Unavailable Unavailable Hernandez, L Elisabeth FIBERGLASS FABRICATOR Unavailable Unavailable Hernandez, L Elisaebth FIBERGLASS FABRICATOR Unavailable Unavailable Hernandez, L Elisabeth FIBERGLASS FABRICATOR Unavailable Unavailable Hernandez, L Elisabeth FIBERGLASS FABRICATOR Unavailable Unavailable Hernandez, L Elisabeth FIBERGLASS FABRICATOR Unavailable Unavailable Hernandez, L Elisabeth FIBERGLASS FABRICATOR Unavailable Unavailable Hernandez, L Elisabeth FIBERGLASS FABRICATOR Unavailable Unavailable Hernandez, L Elisabeth FIBERGLASS FABRICATOR Unavailable Unavailable Hernandez, L Elisabeth FIBERGLASS FABRICATOR Unavailable Unavailable Hernandez, L Elisabeth FIBERGLASS FABRICATOR Unavailable Unavailable Hernandez, L Elisabeth FIBERGLASS FABRICATOR Unavailable Unavailable Hernandez, L Elisabeth FIBERGLASS FABRICATOR Unavailable Unavailable Hernandez, L Elisabeth FIBERGLASS FABRICATOR Unavailable Unavailable Hernandez, L Elisabeth FIBERGLASS FABRICATOR Unavailable Unavailable Hernandez, L Elisabeth FIBERGLASS FABRICATOR Unavailable Unavailable Hernandez, L Elisabeth FIBERGLASS FABRICATOR Unavailable Unavailable Hernandez, L Elisabeth FIBERGLASS FABRICATOR Unavailable Unavailable Hernandez, L Elsiabeth FIBERGLASS FABRICATOR Unavailable Unavailable Hernandez, L Elisabeth FIBERGLASS FABRICATOR Unavailable Unavailable Hernandez, L Elisabeth FIBERGLASS FABRICATOR Unavailable Unavailable Hernandez, L Elisabeth FIBERGLASS FABRICATOR Unavailable Unavailable Hernandez, L Elisabeth FIBERGLASS FABRICATOR Unavailable Unavailable Crawford, Sydney ADJUNCT COMMUNICATIONS FACULTY MEMBER Unavailable Unavailable Crawford, Sydney ADJUNCT COMMUNICATIONS FACULTY MEMBER Unavailable Unavailable Crawford, Sydney ADJUNCT COMMUNICATIONS FACULTY MEMBER Unavailable Unavailable Crawford, Sydney ADJUNCT COMMUNICATIONS FACULTY MEMBER Unavailable Unavailable Crawford, Sydney ADJUNCT COMMUNICATIONS FACULTY MEMBER Unavailable Unavailable Crawford, Sydney ADJUNCT COMMUNICATIONS FACULTY MEMBER Unavailable Unavailable Crawford, Sydney ADJUNCT COMMUNICATIONS FACULTY MEMBER Unavailable Unavailable Crawford, Sydney ADJUNCT COMMUNICATIONS FACULTY MEMBER Unavailable Unavailable Crawford, Sydney ADJUNCT COMMUNICATIONS FACULTY MEMBER Unavailable Unavailable Crawford, Sydney ADJUNCT COMMUNICATIONS FACULTY MEMBER Unavailable Unavailable Crawford, Sydney ADJUNCT COMMUNICATIONS FACULTY MEMBER Unavailable Unavailable Long, Yogi Unavailable Unavailable Long, Yogi Unavailable Unavailable Long, Yogi Unavailable Unavailable Long, Yogi Unavailable Unavailable Long, Yogi Unavailable Unavailable Long, Yogi Unavailable Unavailable Long, Yogi Unavailable Unavailable Long, Yogi Unavailable Unavailable Long, Yogi Unavailable Unavailable Long, Yogi Unavailable Unavailable Long, Yogi Unavailable Unavailable Long, Yogi Unavailable Unavailable Long, Yogi Unavailable Unavailable Long, Yogi Unavailable Unavailable Long, Yogi Unavailable Unavailable Long, Yogi Unavailable Unavailable Long, Yogi Unavailable Unavailable Long, Yogi Unavailable Unavailable Long, Yogi Unavailable Unavailable Long, Yogi Unavailable Unavailable Long, Yogi Unavailable Unavailable Long, Yogi Unavailable Unavailable Long, Yogi Unavailable Unavailable Long, Yogi Unavailable Unavailable Long, Yogi Unavailable Unavailable Long, Yogi Unavailable Unavailable Long, Yogi Unavailable Unavailable Long, Yogi Unavailable Unavailable Long, Yogi Unavailable Unavailable Long, Yogi Unavailable Unavailable Long, Yogi Unavailable Unavailable Long, Yogi Unavailable Unavailable Long, Yogi Unavailable Unavailable Long, Yogi Unavailable Unavailable Long, Yogi Unavailable Unavailable Long, Yogi Unavailable Unavailable Long, Yogi Unavailable Unavailable Long, Yogi Unavailable Unavailable Long, Yogi Unavailable Unavailable Long, Yogi Unavailable Unavailable Long, Yogi Unavailable Unavailable Long, Yogi Unavailable Unavailable Long, Yogi Unavailable Unavailable Long, Yogi Unavailable Unavailable Re-disclosure Warning The records that you are about to access may contain information from federally-assisted alcohol or drug abuse programs. If such information is present, then the following federally mandated warning applies: This information has been disclosed to you from records protected by federal confidentiality rules (42 CFR part 2). The federal rules prohibit you from making any further disclosure of this information unless further disclosure is expressly permitted by the written consent of the person to whom it pertains or as otherwise permitted by 42 CFR part 2. A general authorization for the release of medical or other information is NOT sufficient for this purpose. The Federal rules restrict any use of the information to criminally investigate or prosecute any alcohol or drug abuse patient.The records that you are about to access may contain highly sensitive health information, the redisclosure of which is protected by Article 27-F of the [facility] Public Health law. If you continue you may have access to information: Regarding HIV / AIDS; Provided by facilities licensed or operated by the [facility] Office of Mental Health; or Provided by the [facility] Office for People With Developmental Disabilities. If such information is present, then the following [facility] mandated warning applies: This information has been disclosed to you from confidential records which are protected by state law. State law prohibits you from making any further disclosure of this information without the specific written consent of the person to whom it pertains, or as otherwise permitted by law. Any unauthorized further disclosure in violation of state law may result in a fine or alf sentence or both. A general authorization for the release of medical or other information is NOT sufficient authorization for further disc losure. Allergies and Adverse Reactions Type Description Substance Reaction Status Data Source(s ) Drug Class NO KNOWN ALLERGIES NO KNOWN ALLERGIES [facility] Allergy to substance Allergy to substance Allergy to substance [facility] ([facility]) Allergy to substance Allergy to substance Allergy to substance [facility] ([facility]) Allergy to substance Allergy to substance Allergy to substance [place] ([facility]) Encounters Encounter Providers Location Date Indications Data Source(s ) Outpatient Attender: Chelsy Quinteros MD 01/09/2021 12:00:[address] [facility] Outpatient Attender: Chelsy Quinetros MD [id number] 12/04/2020 12:00:0 0 AM [facility] Chrissie Goldstein PA-C: [address] [facility], [place] [address], Ph. Attender: Chrissie SPENCER [facility] Medical 11/20/2020 12:00:00 AM EST [place] ([facility]) Beto Stearns MD: [address] [place] [address], Ph. Attender: Beto Stearns MD [facility] Medical 11/12/2020 12:00:00 AM EST [place] ([facility]) Beto Stearns MD: [address] [place] [address], Ph. Attender: Beto Stearns MD [facility] Medical 11/12/2020 12:00:00 AM EST [place] ([facility]) Outpatient Attender: Chelsy Quinteros MD 10/23/2020 12:00:00 AM EST [facility] Outpatient Attender: Chelsy Quinteros MD 10/03/2020 12:00:00 AM EST [facility] Outpatient Attender: Chelsy Quinteros MDReferrer: Loli Hernandez [facility] [id number] 09/26/2020 12:00:00 AM EST - 09/27/2020 12:00:00 AM ES T Genetic susceptibility to other disease [facility] Genetic susceptibility to other disease Outpatient Referrer: Chelsy Quinteros MD 09/26/2020 12 :00:00 AM EST Genetic susceptibility to other disease [facility] Genetic susceptibility to other disease Outpatient Referrer: Chelsy Quinteros MD 09/26/2020 12 :00:00 AM EST Genetic susceptibility to other disease [facility] Genetic susceptibility to other disease Outpatient Referrer: Chelsy Quinteros MD 09/26/2020 12 :00:00 AM EST Genetic susceptibility to other disease [facility] Genetic susceptibility to other disease Outpatient Referrer: Chelsy Quinteros MD 09/26/2020 12 :00:00 AM EST Genetic susceptibility to other disease [facility] Genetic susceptibility to other disease Arthur Pugh RPA-C: [address], [place] [address], Ph. Attender: ARTHUR CAIC [facility] Medical 08/08/2020 12:00:00 AM EDT [place] ([facility]) Arthur Pugh RPA-C: [address], [place] [address], Ph. Attender: ARTHUR CAIC [facility] Medical 08/08/2020 12:00:00 AM EDT [place] ([facility]) Arthur Pugh RPA-C: [address], [place] [address], Ph. Attender: ARTHUR CAIC [facility] Medical 08/08/2020 12:00:00 AM EDT [place] ([facility]) Outpatient Attender: Beto Stearns MD CT 07/26/2020 05:10:01 PM EDT [facility] Outpatient Attender: Beto Stearns MD ALL 07/11/2020 02:40:02 PM EDT [facility] Outpatient [facility] 07/11/2020 12:02:57 AM EDT [facility]patient [facility] 07/10/2020 05:12:01 PM EDT [facility] 07/10/2020 05:11:01 PM EDT [facility] 07/10/2020 03:49:01 PM EDT [facility] Outpatient Attender: Sydney brooke 05/11/2020 02:30:00 PM EDT [facility] (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 02 MG Oral Tablet BEA 3-0.02 MG Oral Tablet BEA 3-0.02 MG Oral Tablet 09/17/2020 12:00:00 AM EST [facility] No Active Medications 05/11/2020 12:00:00 AM EDT completed [facility] ([facility]) PPD- TB Intradermal Test 05/11/2020 12:00:00 AM EDT completed [facility] ([facility], [facility]) Medication administered onsite duloxetine 30 MG Delayed Release Oral Ca psule DULoxetine HCl 30 MG Oral Capsule Delayed Release Particles (CYMBALTA) DULoxetine HCl 30 MG Oral Capsule Delaye d Release Particles (CYMBALTA) 01/12/2020 12:00:00 AM EDT [facility] Insurance Providers Payer name Policy type / Coverage type Policy ID Covered alliance party ID Covered alliance party's relationship to sow Policy Sow Plan Information [facility] [id number] [facility] [[email or web address] [id number] [facility] [id number] Self [id number] [address] [facility] [id number] S [id number] [facility] [id number] 18 [id number] SELF PAY ONLY [id number] SP [id number] Problems, Conditions, and Diagnoses Code Display Name Description Problem Type Effective Dates Data Source(s) V01.79 Contact with and (suspected) exposure to other viral communicable diseases Contact with and (suspected) exposure to other viral communicable diseases 07/10/2020 05:10:04 PM EDT [facility] [id number] Exposure to communicable disease Exposure to Com municable Disease Problem 07/10/2020 12:00:00 AM EDT [place] ([facility]) M19.90 Unspecified osteoarthritis, unspecified site Unspecified osteoarthritis, unspecified site Diagnosis 09/26/2020 01:57:00 PM [facility] 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 Diagnosis 09/26/2020 01:57:00 PM [facility] M542 Cervicalgia Cervicalgia Diagnosis 01/10/2020 08:24:00 AM EDT [facility] 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, unspec ified cervical region Other cervical disc displacement, unspecified cervical region Diagnosis 01/10/2020 08:24:00 AM EDT [facility] Surgeries/Procedures Procedure Description Date Indications Data Source(s) RADEX SPINE CERVICAL 2/3 VIEWS XR SPINE CERV 2-3 VIEWS 77353 Ro utine 09/26/2020 2:39 PM EST HLA B27 (HLA B27 positive) Inflammatory arthritis 09/26/2020 02:39:13 PM EST Inflammato ry arthritisHLA B27 (HLA B27 positive) [facility] Inflammatory arthritis HLA B27 (HLA B27 positive) RADIOLOGIC EXAM SACROILIAC JOINTS 3/MORE VIEWS XR SACROILIA C JOINTS 37568 Routine 09/26/2020 2:38 PM EST HLA B27 (HLA B27 positive) Inflammatory arthritis 09/26/2020 02:38:41 PM EST Inflammato ry arthritisHLA B27 (HLA B27 positive) [facility] Inflammatory arthritis HLA B27 (HLA B27 positive) XR HIPS- BILAT, 2 VIEWS 82742 XR HIPS- BILAT, 2 VIEWS 11682 R outine 09/26/2020 2:37 PM EST HLA B27 (HLA B27 positive) Inflammatory arthritis 09/26/2020 02:37:56 PM EST Inflammato ry arthritisHLA B27 (HLA B27 positive) [facility] Inflammatory arthritis HLA B27 (HLA B27 positive) RADEX HAND MINIMUM 3 VIEWS XR HAND 3 OR MORE VIEWS 81972 Routin e 09/26/2020 2:37 PM EST HLA B27 (HLA B27 positive) Inflammatory arthritis 09/26/2020 02:37:32 PM EST Inflammato ry arthritisHLA B27 (HLA B27 positive) [facility] Inflammatory arthritis HLA B27 (HLA B27 positive) Needle electromyography, each extremity, with related paraspinal areas, when performed, done with nerve conduction, amplitude and latency/velocity study; complete, five or more muscles studied, innervated by three or more nerves or four or more spinal levels (list separately in addition to the code for primary procedure). 03/29/2020 12:00:00 AM EDT [facility] T ([facility]) [address] Nerve conduction studies 13 or more studies NEW 201203/29/2020 12:00:00 AM EDT [facility] ([facility]) Results ID Date Data Source [id number] 12/04/2020 09:39:58 AM [facility] Hospital Name Value Range Interpretation Code Description Data Leonila rce(s) Supporting Document(s) Progress Note [facility] PBZGVl0aZpKOLyTp02/JXWwjQEQta7XhWAzkXVb1VTjmCMXkH6SrYQA3lH3kSAM8CLgLFhMrJgQzSfA3 lbm [file] nW/kfxswqWDvqlfxyudh65FafOREBXouf77I+j83DsclXlXMi8LfzrpzhGJCBf4onnwl1o0YRP368yu k0ywziL44ihBMFzBM4tUWDGSZSJuW1HLm6UUAECE/QtrE8vikB/TSf9/6+jvPt5LCiIA0mwBS2U+EYtO Ntd0QImVJeeSG/z0nzyarbWYcuLXLq5xXgX2sW0kU3 DCN2xPyB2PzCvdesam0LOhobPW3/ACaek89XbNHKiJf9w/2pQ8HOJFflZlBBAyRyeBwl2EfP4g++cxRw iR1cfFxgi9fWKv853BisLZ7+jOar4gx8KFHQDD9d+SvoJU97JZ1ix7XAE9XBsXdt2FIuFgtiqIO4W8Lq Erm5o7by6TQP5Xg/XwYpYUjTD4HLI/2O58itecwy5E TbU6ZqRusR6GUQ3HaUQ2tES2E5pch9RRWc2ydXu0Ab1ATjLPPd6z6BcvuecoC5WrhsUyedetQZDyKrhv AHsma9ypZK2OCB/VK4SWD3J7aKyyqnpdgzAUXZZ6e5d0NOreB6kfvvUFC5je41Mjostt8ceuU4PYPdjV iDChRtA/v5Fbe1ezrMfeFKDugkPVzFch/fux/miXc5 1O13TvY3n/brL3SF8t4QbogpUm/qA9+oGv8HW3jok9QqVIc8FlHc6jh1Va3130z+1p0uyQiU1TChDWMQ Bo68mwQYOOp/lE/fE/7sZBLjd3X1gMZQO/gQln6KTMX7EdJ0MYsf9M1Gj4QtQt64RhSi8Vtuw+osVz19 JoT4Hi4hj1GqbfoaYy2UXjKRTU3JrRTPVtDRBM+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 [file] AgICAgICAgICAgICAgICAgICAgICAgICAgICAgICAgICAgICAgICAgICAgICAgICAgICAgICAgICAgIC JmSXRyUKKmKQRgQDAgVPQcSX5ZCDTsBSMsLQCcNLYn ICAgICAgICAgICAgICAgICAgICAgICAgICAgICAgICAgICAgICAgICAgICAgICAgICAgICAgICAgICAg NQMdDRHnIBDzVJEnYTCaKOUbNXOyTTBwVSRmNC2VIYSzFKLpLKKxMGJiEVVlKLBdRYWsTAGxSWYxUZEz ICAgICAgICAgICAgICAgICAgICAgICAgICAgICAgIC ClWHTdGNVqXKRrXJKzRLRtWBQgBARiTJNgVUNcOFCpEEEqNSHdWR4EXFDpBEThJCSzYQQmMWHoLBGrEY AgICAgICAgICAgICAgICAgICAgICAgICAgICAgICAgICAgICAgICAgICAgICAgICAgICAgICAgICAgIC KsXMHeYNXqLSSyHFPrFLIgGMFsES5ESMNsEMBxDAYt ICAgICAgICAgICAgICAgICAgICAgICAgICAgICAgICAgICAgICAgICAgICAgICAgICAgICAgICAgICAg JJCrYTDbZVAyMAPjMFJgAIExOKHiADOuWUXdRDJaWN7NLTZrGCZvXIQtFUBrQAGqHYMzOPShYYFjKQEz ICAgICAgICAgICAgICAgICAgICAgICAgICAgICAgIC DfGQUvTAKvBDCpPHTcMNDnBPEmSVZlHZDdCDEaCERpULCdFXIgBROhNA1YTYUoJUIcZRVhRZMjIWAtWE AgICAgICAgICAgICAgICAgICAgICAgICAgICAgICAgICAgICAgICAgICAgICAgICAgICAgICAgICAgIC PfXLMzHBMfJEOjTFMxMCCzVBHrRVSzOT6UTQDtDNIf ICAgICAgICAgICAgICAgICAgICAgICAgICAgICAgICAgICAgICAgICAgICAgICAgICAgICAgICAgICAg ZBRxYNYlFSEgWIDtORByMNIdAFQeTVUbAYSuVVPbKFSvXR5AAIMcURVtBHJqPJUiLTBkYACzDWEdRFOj ICAgICAgICAgICAgICAgICAgICAgICAgICAgICAgIC TjBKBbOHMkJWGjBIHbZOScVHNyCNFsMHPcPYFfVXXfSPPgKCOvKBWoHQNfUZ3AXFLwSNYpOVNjVEIfJH AgICAgICAgICAgICAgICAgICAgICAgICAgICAgICAgICAgICAgICAgICAgICAgICAgICAgICAgICAgIC HkRELqUJNrCSNsCPOjVFAdNGUnAGRuSPRfAZ2PUL44 rCNqw6W5FCTcLQ6dzfp/Og4DWTcmmzNwoDFmSE7LQqDbXT3und5UFuHwUY4qyc1FINoSExHvH3U2tWPh SLKnNQBKThBoR31aMTjaHh15HJnnVRUkQdNtTXm4Kk4QGaDxO2czYJGoXhZ9MOFnIoB3ZMEvVrZ7XFWn AdXkALEtBVQmLCEdCYJXLM2RJvSxY7CeoM21NJORPh 4+UAurxkXnZfhXHdX1CLCbb1CtSFf5PX9BGGJpYevoy8SjAtkeMBJXRPfqJT5HBNG6PXQ2TOZqKn0OCO OeM586bvErRF5UEk4BEsIyHR5qur9MWomhFVJoVjsQVnq9CMjkZP2HvXUaKUqLtv4wcwTfnyQKg5Goar XkkKMOmLsgFJYVEZ9wD0BaxgzvCWUjINMmHk8pQt9i OFLtLXS6KfLuLKHLTR3KFGAqWFPikXMxQZUjTDVDCM5UKVgeCZQ0WBIhmxUzpSTnYCsxKE2OMUGwfaJs MjcgMCBSDQo+Hb2XWX1mt0YfEAdhFNLoVG8dky7LCIcKPnSgA9F5oCZnI1H6CYtcLg6OMPVoVNZwBjBs PATDADocOW6VTG1hwoF4PP9WnQKzQEOwPVIuqNMfFM m0F90xvKTeWSzuNY0LFOG+Kenia+Kb1BCMAuKNTuIXRsQvTlFZGMKjTzY4SeO3XNc2XsE4ZgNZ58tUzlwd VsWMnzAX6PLQ1qWNPfRDWTRH3PwLUaaN1vccJuTzReRBTYMnUuE53vvZRzYDBbXIR9XMDjIf5VMOXsJ3 PhpnWqgEcfugRcWHIcTHRESM0XPElgwnRzySQcoXgn DF62cGsaNP5BRy9HPyLyAI8euy3RbMTfWy5PSHMmKD1BILIzKMKnTXQaNJR1HXFkRlErWPscMUReSKSx FIF5EROoLUYqCF4QPrPwDIWaDbA8BVZfDQOcOGFsgc9ZYXYrTJQsWjS5YhOoHDKvQERkUAihWZJqKVBq KTB6TILbZVIwPS6GCeZpKMXpQIU4FCOpWUUcOJXfsf 1GQSQaFHGtUOt6UBEqEZDvJDSvHIxvHQSjXQV9LrejKYUfRGQeUY2NXjYsQFFuONg0LOBxSLCaQWPqkt 9FJMSdTCCzIWVqIkVtUIPxYNBoHWryCSRcOASrLiQ6ANStUBAfZN4XAoAaBDKkAFFuZRPyHHYvKHFxck 9VUXXpAKGmGTC8HfMuQDFbKUIiCKawACNuBNE9Lpq7 GXClITHbEK5BWsGhHWJqKZY1HUKnRGLvNSJkrp4KHRQmYIXhQgg5BsBkWWLhRYCaYDfrUZUfCMF6KEB6 YBYvHYDiYO9IWqGeWUCoHKloXuWhDUBsPQGmei3BNIRhQMOuJDS9GHFfJJDbJHLuFBmcEHBrLES7Nlhw IAGlNOPuJB8VOuLqYGNpZFa7VmZmXWUtBIYxex6MTK EoBULlOMYyNCWvQSYkLWHvYXcuEANnYJUwKwX4WXYdFVYcMX7BArPlSPAfMeH8IrMkFHLfHEWhob9IUV XeDGQdRSc9VJWjAJFgBAMnXEjuCZXdGKUiAQOpWGGlKFQoNR6LNgNlPSQrKyEgLnZxQXXvZMErut6SGO HsKXBzTji0KhRxRMTcAVVeSBvyHKPeUDInIFW1ORFo AKPcWW3SJtUfTKAeKnZyVKOgQTLuKKOaec1FkGBxnRzxsf3CRRfOPe1PqIueMBFlNFcpNn4kpKTmSPDp HWZSNp5LsdDcXOBsEDCFIVhtWGPrXWBzMOWcOMFmPTazXRZaBkP5VOX3JXc3YjFhWEI0CHGfZrK6ZzI0 TsExOLI9D5C9XURoKee5ObccGKPdCCK0PhHsSFU+IF 0gDQo+Xx4Em0GaknV1ndEpWOopGJN3SA0VERXDP0DPGa== ID Date Data Source [id number] 11/20/2020 09:58:00 AM EST [place] ([facility]) Name Value Range Interpretation Code Description Data Leonila rce(s) Supporting Document(s) sars-cov-2 negative negative normal Sars-cov-2 [facility] ([facility]) ID Date Data Source [id number] 11/20/2020 09:57:00 AM EST [facility] Name Value Range Interpretation Code Description Data Leonila rce(s) Supporting Document(s) SARS coronavirus 2 RdRp gene [Presence] in Respiratory specimen by LATISHA with probe detection Not detected [facility] This lab was ordered by [facility] and reported by [facility]. ID Date Data Source [id number] 11/12/2020 10:37:00 AM EST [facility] ([facility]) Name Value Range Interpretation Code Description Data Leonila rce(s) Supporting Document(s) sars-cov-2 negative negative normal Sars-cov-2 [facility] ([facility]) ID Date Data Source [id number] 11/12/2020 09:34:00 AM EST [facility] Name Value Range Interpretation Code Description Data Leonila rce(s) Supporting Document(s) SARS coronavirus 2 RdRp gene [Presence] in Respiratory specimen by LATISHA with probe detection Not detected [facility] This lab was ordered by [facility] and reported by [facility]. ID Date Data Source [id number] 09/26/2020 03:51:38 PM EST [facility] XR HAND 3 OR MORE VIEWS [id number] RESUL TInterpreted by:Adalberto Shea MDINDICATION: Assess for any signs of inflammatory arthritis.TECHNIQUE: 4 radiographic views of the right hand were obtained. 4 radiographic views of left hand were obtained. COMPARISON: None.FINDINGS: There is no evidence for an acute fracture or dislocation . No bony erosions are seen to represent inflammatory arthropathy. The joint spaces are well maintained and there is anatomic alignment . The soft tissue structures are unremarkable.IMPRESSION:No acute bony injury is identified within either hand. T here is no radiographic evidence for an inflammatory arthropathy within either hand.This document has been electronically signed by Heath Shine MD on 09/26/2020 3:49 PM Name Value Range Interpretation Code Description Data Leonila rce(s) Supporting Document(s) ID Date Data Source [id number] 09/26/2020 03:50:18 PM [facility] XR HIPS- BILAT, 2 VIEWS [id number] RESU LTInterpreted by:Adalberto Shea MDINDICATION: Hip pain.TECHNIQUE: An AP and frog-leg lateral radiographic view of the right hip was obtained. An AP and frog-leg lateral radiographic view of the left hip was obtained.COMPARISON: None.FINDINGS: There is no evidence for an acute fracture or dislocation . The joint spaces are well maintained and there is anatomic alignment . No cortical erosion is seen represent an inflammatory arthropathy is identified. The soft tissue structures are unremarkable.IMPRESSION:No acute bony injury is identified. No evidence for an acute inflammatory arthropathy is identified.This document has been electronically signed by Heath Shine MD on 09/26/2020 3:48 PM Name Value Range Interpretation Code Description Data [facility] Supporting Document(s) ID Date Data Source [id number] 09/26/2020 03:48:08 PM [facility] XR SACROILIAC JOINTS [id number] RESULTIn terpreted by:Adalberto Shea MDINDICATION: Positive HLA-B27, concern for .TECHNIQUE: 3 radiographic views of the SI joints bilaterally were obtained. COMPARISON: None.FINDINGS: There is no evidence for an acute [...] an erosion. The soft tissue structures are unremarkable.IMPRESSION:No acute bony injury is identified. There is no evidence of an erosive arthropathy of either sacroiliac joint. Likely small subchondral degenerative cyst involving the right sacroiliac joint as discussed above.This document has been electronically signed by Heath Shine MD on 09/26/2020 3:45 PM Name Value Range Interpretation Code Description Data Leonila rce(s) Supporting Document(s) ID Date Data Source [id number] 09/26/2020 02:56:06 PM EST [facility] XR SPINE CERV 2-3 VIEWS [id number] RESUL TInterpreted by:Champ Berry MDEXAMINATION: XR SPINE CERV 2-3 VIEWS [id number] INDICATION: Neck pain.TECHNIQUE: Upright AP, lateral, open-mouth odontoid, and Fuchs images of the cervical spine were submitted for interpretation. A total of 4 images were available at the time of dictation.COMPARISON: None at the time of this dictation.FINDINGS/IMPRESSION: There are no significant arthritic changes shown. Mild focal reversal of the normal cervical lordosis from C4 to C6 with apex at C5 is present. There is no spondylolisthesis. No acute fractures are shown. Vertebral body and disc heights are normal. The bone density appears normal. There are no osteolytic or osteoblastic lesions shown. No prevertebral soft tissue swelling is present. This document has been electronically signed by Champ Berry MD on 09/26/2020 2:54 PM Name Value Range Interpretation Code Description Data Leonila rce(s) Supporting Document(s) ID Date Data Source [id number] 09/26/2020 01:56:41 PM EST [facility] Name Value Range Interpretation Code Description Data Leonila rce(s) Supporting Document(s) Progress Note [facility] [id number] [facility] [file] [id number] ID Date Data Source [id number] 09/26/2020 04:49:35 PM [facility] Name Value Range Interpretation Code Description Data Leonila rce(s) Supporting Document(s) Erythrocyte sedimentation rate 10 mm/hr <20 [facility] ID Date Data Source [id number] 09/26/2020 05:51:45 PM [facility] Name Value Range Interpretation Code Description Data Leonila rce(s) Supporting Document(s) Complement C3 [Mass/volume] in Serum or Plasma 132 mg/dL 90-180 [facility] ID Date Data Source [id number] 09/26/2020 05:51:45 PM [facility] Value Range Interpretation Code Description Data Leonila rce(s) Supporting Document(s) Complement C4 [Mass/volume] in Serum or Plasma 20 mg/dL 10-40 [facility] ID Date Data Source [id number] 09/26/2020 05:51:45 PM [facility] Value Range Interpretation Code Description Data Leonila rce(s) Supporting Document(s) Rheumatoid factor [Units/volume] in Serum or Plasma <14 [facility] ID Date Data Source [id number] 09/26/2020 05:51:45 PM [facility] Value Range Interpretation Code Description Data Leonila rce(s) Supporting Document(s) C reactive protein [Mass/volume] in Serum or Plasma 3.1 mg/L <8.0 [facility] ID Date Data Source [id number] 09/28/2020 03:40:08 PM [facility] Value Range Interpretation Code Description Data Leonila rce(s) Supporting Document(s) HLA-B27 [Presence] Negative A [facility] ID Date Data Source [id number] 09/27/2020 12:49:42 PM [facility] Value Range Interpretation Code Description Data Leonila rce(s) Supporting Document(s) Sjogrens syndrome-A extractable nuclear Ab [Units/volume] in Serum by Immunofluorescence 9 [AU]/mL [address] [place] [address] Sjogrens syndrome-B extractable nuclear Ab [Units/volume] in Serum by Immunofluorescence 7 [AU]/mL [address] [place] [address] Torres extractable nuclear Ab [Units/volume] in Serum b y Immunofluorescence 7 [AU]/mL [address] [place] [address] Ribonucleoprotein extractable nuclear Ab [Units/volume] in Serum by Immunofluorescence 23 U/ML [address] [place] [address] SCL-70 extractable nuclear Ab [Units/volume] in Serum 29 [AU]/mL [address] [place] [address] Annamarie-1 extractable nuclear Ab [Units/volume] in Serum by Immunofluorescence 6 [AU]/mL 0-99 [facility] DNA double strand Ab [Units/volume] in Serum by Immunofluore scence 4 [IU]/mL 0-99 [facility] Centromere Ab [Units/volume] in Serum 6 [AU]/mL 0-99 [facility] Histone IgG Ab [Units/volume] in Serum 9 [AU]/mL 0-99 [facility] ID Date Data Source [id number] 09/27/2020 02:05:43 PM [facility] Name Value Range Interpretation Code Description Data Leonila rce(s) Supporting Document(s) Nuclear Ab Pattern Homogenous [Titer] in Serum 640 /{dilution} <80 H [facility] Nuclear Ab pattern.speckled [Titer] in Serum <80 [facility] Nuclear Ab pattern.rim [Titer] in Serum <80 [facility] Nuclear Ab pattern.nucleolar [Titer] in Serum <80 [facility] ID Date Data Source [id number] 09/28/2020 10:25:44 AM [facility] Name Value Range Interpretation Code Description Data Leonila rce(s) Supporting Document(s) Cyclic citrullinated peptide IgA+IgG Ab [Units/volume] in Serum or Plasma by Immunoassay 4 units 0-20 [facility] NegativeNegative and indicates no CCP3an tibodies or levels below the negativecutoff of the assay.(NOTE)These results were obtained with the [employer] CCP3.1 IgG/IgAELISA. Anti-CCP values obtained with different contact lens manufacturer's assaymethods may not be interchangeable. The magnitude of the reported IgGor IgA levels cannot be correlated to an endpoint titer. ID Date Data Source [id number] 08/08/2020 09:30:00 AM EDT [facility]) Name Value Range Interpretation Code Description Data Leonila rce(s) Supporting Document(s) SARS-CoV-2 (COVID-19) RNA [Presence] in Respiratory specimen by LATISHA with probe detection not detected not detected Sars Cov 2 RNA [facility]) ID Date Data Source [id number] 08/08/2020 09:30:00 AM EDT [facility]) Name Value Range Interpretation Code Description Data Leonila rce(s) Supporting Document(s) SARS-CoV-2 (COVID-19) RNA [Presence] in Respiratory specimen by LATISHA with probe detection not detected not detected Sars Cov 2 RNA [facility] ([facility]) ID Date Data Source [id number] 08/08/2020 09:30:00 AM EDT [facility] Name Value Range Interpretation Code Description Data Leonila rce(s) Supporting Document(s) SARS-COV-2 RNA RESP QL LATISHA+PROBE [facility] This lab was ordered by [facility] and reported by [facility]. ID Date Data Source [id number] 07/25/2020 01:45:00 PM EDT [facility] Name Value Range Interpretation Code Description Data Leonila rce(s) Supporting Document(s) SARS-COV-2 RNA RESP QL LATISHA+PROBE [facility] This lab was ordered by [facility] and reported by [facility]. ID Date Data Source [id number] 07/25/2020 01:45:00 PM EDT [facility] In-House Lab TestsDate/Time Collect ed: July 25, 2020 1:45 PMDate/Time Received: July 25, 2020 1:45 PMComments: COVID-19 testing done in office taken from right nostril without difficulty. Patient tolerated it well. Mariela Arias MA, July 25, 2020 3:44 PMAssessment & Plan Orders:Specimen Handling [[id number]] Name Value Range Interpretation Code Description Data Leonila rce(s) Supporting Document(s) ID Date Data Source [id number] 07/11/2020 10:45:00 AM EDT [facility] Name Value Range Interpretation Code Description Data Leonila rce(s) Supporting Document(s) SARS-COV-2 RNA RESP QL LATISHA+PROBE [facility] This lab was ordered by [facility] and reported by [facility]. ID Date Data Source [id number] 03/01/2020 03:48:00 PM EDT [facility] ([facility]) Name Value Range Interpretation Code Description Data Leonila rce(s) Supporting Document(s) HLA-B27 related Ag [Presence] Laboratory test result [facility] ([facility]) HLA-B*27 Positive This patient is positive for HLA-B*27. This procedure rules out the B*27:06 and 27:09 alleles, which the literature suggests are not associated with spondyloarthropathies. B27 allele interpretation for all loci based on IMGT/HLA database version 3.38 This test was developed and its performance characteristics determined by [employer]. It has not been cleared or approved by the Food and Drug Administration. [facility] CLIA ID Number [id number] . This test was performed using PCR (Polymerase Chain Reaction)/SSOP (Sequence Specific Oligonucleotide Probes) technique. SBT (Sequence Based Typing) and/or SSP (Sequence Specific Primers) may be used as supplemental methods when necessary. Please contact [facility] Customer Service at if you have any questions. . Director of [facility] Laboratory Dr Panda Gutierrez, PhD Erythrocyte sedimentation rate by Westergren method 5 mm/hr 0-20 [facility] ([facility]) ID Date Data Source [id number] 03/01/2020 03:48:00 PM EDT [facility] ([facility]) Name Value Range Interpretation Code Description Data Leonila rce(s) Supporting Document(s) Lyme Disease IgM Ab Quantitati Laboratory test result 0.00-0.79 [facility] ([facility]) <content>Negative <0.80</content >
<content>Equivocal 0.80 - 1.19</content>
<content>Positive >1.19</content>
<content>.</content>
<content>IgM levels may peak at 3-6 weeks post infection, then</content>
<content>gradually decline.</content>
<content></content> Lyme Disease IgG/IgM Antibodie Laboratory test result 0.00-0.90 [facility] ([facility]) <content>Negative <0.91</content >
<content>Equivocal 0.91 - 1.09</content>
<content>Positive >1.09</content>
<content></content> ID Date Data Source [id number] 03/01/2020 03:48:00 PM EDT [facility] ([facility]) Name Value Range Interpretation Code Description Data Leonila rce(s) Supporting Document(s) C reactive protein [Mass/volume] in Serum or Plasma by High sensitivity method Laboratory test result 0.00-0.30 [facility] ([facility]) ID Date Data Source [id number] 03/01/2020 03:48:00 PM EDT [facility] ([facility]) Name Value Range Interpretation Code Description Data Leonila rce(s) Supporting Document(s) Antinuclear Antibodies Direct Laboratory test result [facility] ([facility]) Performed at: [facility] Lab[address] [id number] Vp Of Customer Experience Strategy: Shannan Cardoza MD, Phone: [phone] Performed at: [facility] [id number] Vp Of Customer Experience Strategy: Panda Gutierrez PhD, Phone: [phone] ID Date Data Source [id number] 03/01/2020 03:48:00 PM EDT [facility] ([facility]) Name Value Range Interpretation Code Description Data Leonila rce(s) Supporting Document(s) Rheumatoid factor [Units/volume] in Serum or Plasma Laboratory test result [facility] ([facility]) ID Date Data Source [id number] 03/01/2020 03:48:00 PM EDT [facility] ([facility]) Name Value Range Interpretation Code Description Data Leonila rce(s) Supporting Document(s) Erythrocyte sedimentation rate by Westergren method 5 mm/hr 0-20 [facility] ([facility]) ID Date Data Source [id number] 01/10/2020 04:23:00 [place] [address] PHONE: [phone] FAX: [phone] Name .................. : KELLEE Oden Accflores Number.................. : [id number] ROOM. ................. : MR Number ................... : [id number] Stay type ............. : O/P Discharge Date......... ... : 01/10/20 Admit Date ......... : 01/10/20 Admit Phys .................... : KILGORE IS Date of ....... : 2000 Family Phys ................... : HERNANDEZ [employer] Phone .................. : [phone] Age ................................ : 19 Film# .................. .:[id number] Sex ................................. : F Unsigned transcriptions are preliminary reports and do not represent a medical or legal document MRI CERVICAL SPINE W/O CONTRA [id number] COMPLETE:01/10/20 10:01 [facility] [id number] (SPINE PROC REASON: PAIN MRI OF THE CERVICAL SPINE WITHOUT CONTRAST: FINDINGS: There is straightening of cervical spine lordosis, possibly due to muscle spasm. There is no fracture, subluxation or focal osseous lesion. C2-3: Tiny central disc protrusion is seen with AP diameter of 1-2 mm without central canal stenosis or lateral recess narrowing. C3-4 intervertebral disc space is unremarkable. C4-5 and C5-6: Tiny central disc protrusions are noted measuring 1-2 mm without central canal stenosis or lateral recess narrowing. C6-7, C7-T1 and T1-2 intervertebral disc spaces are unremarkable. Spinal cord pathology is not seen. The paraspinal soft tissues are unremarkable. IMPRESSION: Tiny central disc protrusions at C2- 3, C4-5 and C5-6 measuring 1-2 mm in AP diameter. Disc protrusions minimally distort the ventral aspect of the thecal sac. Central canal stenosis or lateral recess narrowing is not seen. Spinal cord pathology is not seen. There is straightening of cervical spine lordosis which may be due to muscle spasm. Electronically Reviewed and Signed By Page 1 of 2 [facility] [address] [place] [address] [place] [address] PHONE: [phone] FAX: [phone] Name .................. : KELLEE Oden Acct Number.................. : [id number] ROOM. ........... ...... : Number ................... : [id number] Stay type ............. : O/P Discharge Date......... ... : 01/10/20 Admit Date ......... : 01/10/20 Admit Phys .................... : [facility] Date of ....... : 2000 Family Phys ................... : DAVID Grande Phone .................. : [phone] Age ................................ : 19 Film# .................. .:[id number] Sex ................................. : F Unsigned transcriptions are preliminary reports and do not represent a medical or legal document MRI CERVICAL SPINE W/O CONTRA [id number] COMPLETE:01/10/20 10:01 [facility] [id number] (SPINE PROC REASON: PAIN Aleida Child MD , 01/10/20 16:23, KGG Transcribe Initials: DZ , Transcribe Date: 01/10/20 11:04, Dictation Date: Copy for: MAGUI ALFARO Copy for: Richard [facility] Page 2 of 2 Name Value Range Interpretation Code Description Data Leonila rce(s) Supporting Document(s) Procedure Social History Code Duration Value Status Description Data Source(s ) Alcohol intake 12/03/2020 12:00:00 AM EST Ex-drinker (finding) comp leted Ex- drinker (finding) [facility] Tobacco use and exposure 12/03/2020 12:00:00 AM EST Never used co mpleted Never used [facility] Smoking 12/03/2020 12:00:00 AM EST Former smoker completed Former smoker [facility] Alcohol intake 09/26/2020 12:00:00 AM EST Ex-drinker (finding) comp leted Ex- drinker (finding) [facility] Vital Signs ID Date Data Source UNK Name Value Range Interpretation Code Description Data Source(s) Body mass index (BMI) [Ratio] 21.0 kg/m2 21.0 k g/m2 [facility] ([facility], [facility]) Body height 62 [in_i] 62 [in_i] [facility] ([facility], [facility]) 5'2" Body weight 115.00 [lb_av] 115.00 [lb_av] [facility] ([facility], [facility]) Body temperature 98.0 [degF] 98.0 [degF] [facility] ([facility]) Oxygen saturation in Arterial blood by Pulse oximetry 98 % 98 % [facility] ([facility], [facility]) Respiratory rate 18 /min 18 /min [facility] ( [facility], [facility]) Heart rate 103 /min 103 /min [facility] ([facility], [facility]) Diastolic blood pressure 60 mm[Hg] 60 mm[Hg] [facility] ([facility], [facility]) Systolic blood pressure 106 mm[Hg] 106 mm[Hg] [facility], [facility]) Body mass index (BMI) [Ratio] 21.4 kg/m2 21.4 k g/m2 [facility] ([facility] Body weight 115.00 [lb_av] 115.00 [lb_av] [facility] ([facility] Body height 61.50 [in_i] 61.50 [in_i] [facility] ([facility]) 5'1.50" Body temperature 96.0 [degF] 96.0 [degF] [facility] ([facility] ) ID Date Data Source [id number] 09/28/2020 03:40:15 PM [facility] Name Value Range Interpretation Code Description Data Source(s) WEIGHT RECORDED 115 lb 115 lb [facility] Body height Measured 61 in 61 in [facility] Patient Treatment Plan of Care Planned Activity Planned Date Details Description Data Source (s) Hydroxychloroquine Sulfate 200 MG Oral Tablet 12/04/2020 12:00:00 A M [facility] meloxicam 7.5 MG Oral Tablet 10/01/2020 12:00:00 AM [facility] drospirenone 3 MG / Ethinyl Estradiol 0.02 MG Oral Tab let 09/17/2020 12:00:00 AM [facility] duloxetine 30 MG Delayed Release Oral Capsule 01/12/2020 12:00:[address] [facility]
--- NOTE | 2020-12-04 19:53 | ECGEPIP ---
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
== END 2020-12-04 18:37 | disposition home or self-care (01) ==
LOC: M ED 16:05 → EDBD 16:05 → M ED 18:37
DX: R55 Syncope and collapse (principal); I45.19 Other right bundle-branch block; F17.290 Nicotine dependence, other tobacco product, uncomplicated; Z79.899 Other long term (current) drug therapy

== ENCOUNTER → 2021-01-25 | Outpatient (CLI) | payer OTHER ==
--- NOTE | 2021-01-28 08:27 | REP ---
INDICATION: BACK PAIN. COMPARISON: None. TECHNIQUE: Sagittal T1, T2, stir images of the thoracic spine are obtained. Axial T1 and T2 weighted images are obtained. FINDINGS: On the sagittal T2 weighted images, spinal alignment appears normal. Vertebral heights and disc heights are preserved. Disc signals are preserved. On the sagittal T2 weighted images, no significant canal stenosis. No evidence of disc herniation. On the review of axial images, no evidence of canal or foraminal stenosis or disc herniation. On the STIR images, no significant STIR signal abnormality to suggest soft tissue or ligamentous injury. IMPRESSION: Normal thoracic spine. <Electronically signed by Williams Keane > 01/28/21 2550
--- NOTE | 2021-01-28 08:36 | REP ---
INDICATION: BACK PAIN. COMPARISON: None. TECHNIQUE: Sagittal T1, T2, stir images of the cervical spine, axial T1 and T2 weighted images also obtained. FINDINGS: There is mild multilevel degenerative disc disease with loss of disc height and disc desiccation. Vertebral heights are overall preserved. No malalignments. Craniovertebral junction is unremarkable. Cervical cord is normal in its course, caliber and signal characteristics. On the sagittal T2 weighted images, no limiting canal stenosis. On the review of axial images, no significant canal or foraminal narrowing. No disc herniation identified. No significant degenerative disc disease. IMPRESSION: Normal examination. No posttraumatic findings. No disc herniation identified. <Electronically signed by Williams Keane > 01/28/21 0807
== END ==
LOC: M RAD 17:39
PROVIDERS: ATTEND Physician Assistant
DX: M54.9 Dorsalgia, unspecified (principal)